=== PATIENT | female | born 2000 | race Caucasian/White ===

== ENCOUNTER 2021-01-18 23:54 | Emergency (ER) | payer MEDICAID ==
[~2021-01-18] VITALS: Ht 157.5 cm; Wt 77.2 kg
[2021-01-19 00:34] LABS: BILIRUBIN,URINE NEGATIVE (NEG); CLARITY,URINE CLOUDY; COLOR,URINE YELLOW; NITRITE,URINE NEGATIVE (NEG); PH,URINE 6.5 (<5.0-8.0); PROTEIN,URINE NEGATIVE (NEG-TRACE)
[2021-01-19 00:42] LABS: AMORPHOUS SEDIMENT,UR PRESENT /HPF; BACTERIA,URINE 0 /HPF (0-FEW); RBC,URINE 0 /HPF (0-2)
[2021-01-19 00:48] LABS: BASO # 0.1 x10^3/uL (0.0-0.2); BASO % 1 % (0-3); EOS # 0.3 x10^3/uL (0.0-0.7); EOS % 4 % (0-3); HEMATOCRIT 40.4 % (36.0-47.0); LYMPH # 2.8 x10^3/uL (1.0-4.8); LYMPH % 34 % (24-48); MEAN CORPUSCULAR HEMOGLOBIN 30 pg (25-35); MEAN CORPUSCULAR HGB CONC 35 g/dL (31-37); MEAN CORPUSCULAR VOLUME 85 fL (79-100); MONO # 0.7 x10^3/uL (0.0-1.1); MONO % 9 % (0-9); NEUT # 4.3 x10^3/uL (1.8-7.7); NEUT % 53 % (31-73); PLATELET COUNT 270 x10^3/uL (140-400); RED BLOOD COUNT 4.76 x10^6/uL (3.50-5.40); RED CELL DISTRIBUTION WIDTH 12.9 % (11.5-14.5); WHITE BLOOD COUNT 8.3 x10^3/uL (4.0-11.0)
[2021-01-19] MEDS: ORPHENADRINE CITRATE 60 MG/2 ML VIAL. IV ONE (00:53)
[2021-01-19] MEDS: IV NORMAL SALINE 1000ML BAG 1,000 ML IV ONE (00:53)
[2021-01-19] MEDS: KETOROLAC 15 MG/ML VIAL. IVP ONE (00:53)
[2021-01-19 00:58] LABS: CREATININE 0.6 mg/dL (0.6-1.0); GFR 128.8; POTASSIUM 4.1 mmol/L (3.5-5.1)
[2021-01-19 01:03] LABS: ALBUMIN 3.9 g/dL (3.4-5.0); ALBUMIN/GLOBULIN RATIO 1.1 (1.0-1.7); TOTAL BILIRUBIN 0.3 mg/dL (0.2-1.0); TOTAL PROTEIN 7.6 g/dL (6.4-8.2)
[2021-01-19] MEDS: IOHEXOL 300 MG/ML 100ML VIAL. IV ONE (01:28)
[2021-01-19] MEDS ORDERED: CONTRAST GIVEN. MC PRN (01:30)
[2021-01-19 01:57] VITALS: BP 95/50
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
[2021-01-19] MEDS ORDERED: ORPH100T PO (02:11)
[2021-01-19] MEDS ORDERED: NAPR-695 PO (02:11)
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
== END 2021-01-19 02:23 | disposition home or self-care (01) ==
LOC: ER 23:54
DX: S20.212A Contusion of left front wall of thorax, initial encounter (principal); J45.909 Unspecified asthma, uncomplicated; X58.XXXA Exposure to other specified factors, initial encounter; Y93.89 Activity, other specified; Y92.413 State road as the place of occurrence of the external cause; Y99.8 Other external cause status
CPT/HCPCS: 36415; 71260; 74177; 80053; 81001; 81025; 83690; 83735; 85025; 96361; 96374; 96375; 99285; J1885; J2360; J7030; Q9967